=== PATIENT | male | born 1950 | race African-American/Black ===

== ENCOUNTER 2018-09-10 21:00 | Emergency (ER) | payer SELFPAY ==
[~2018-09-10] VITALS: Ht 182.9 cm; Wt 90.0 kg
[2018-09-10 21:28] LABS: GLUCOSE,POINT OF CARE 150 MG/DL (70-110)
[2018-09-10] MEDS ORDERED: AMLO-511 PO (21:44)
[2018-09-10] MEDS ORDERED: METF-960 PO (21:44)
[2018-09-10] MEDS ORDERED: ACETAMINOPHEN/CODEINE 300-30 MG TABLET PO ONE (22:45)
[2018-09-10] MEDS ORDERED: METHOCARBAMOL 750 MG TABLET PO ONE (22:45)
[2018-09-11 01:53] VITALS: BP 133/76
== END 2018-09-11 02:22 | disposition home or self-care (01) ==
LOC: EMS 21:00
DX: S13.4XXA Sprain of ligaments of cervical spine, initial encounter (principal); S33.5XXA Sprain of ligaments of lumbar spine, initial encounter; S23.3XXA Sprain of ligaments of thoracic spine, initial encounter; S00.03XA Contusion of scalp, initial encounter; F17.210 Nicotine dependence, cigarettes, uncomplicated; E11.9 Type 2 diabetes mellitus without complications; I10 Essential (primary) hypertension; Z79.84 Long term (current) use of oral hypoglycemic drugs; Z79.899 Other long term (current) drug therapy; Z86.73 Personal history of transient ischemic attack (TIA), and cerebral infarction without residual deficits; V43.92XA Unspecified car occupant injured in collision with other type car in traffic accident, initial encounter; Y93.89 Activity, other specified; Y92.524 Gas station as the place of occurrence of the external cause; Y99.8 Other external cause status
CPT/HCPCS: 70450; 72070; 72100; 72125; 99406